=== PATIENT | male | born 1945 ===

== ENCOUNTER → 2019-11-15 | Emergency (ER) | payer OTHER ==
[~2019-11-15] VITALS: Ht 170.2 cm; Wt 74.8 kg
[~2019-11-15] MED LIST: ASPIR 8181 MG; BISOPROLOL FUMAR5 MG; DIURETIC; LIPITOR20 MG; OMEPRAZOLE MAGN20 MG; VERELAN240 MG; ZETIA10 MG
== END | disposition home or self-care (01) ==
LOC: ER 09:59
DX: B34.9 Viral infection, unspecified (principal); R07.0 Pain in throat

== ENCOUNTER 2019-11-26 22:10 | Emergency (ER) | payer OTHER ==
[~2019-11-26] VITALS: Ht 167.6 cm; Wt 74.8 kg
[2019-11-26] MEDS ORDERED: TORSEMIDE5 MG (22:35)
[2019-11-27] MEDS ORDERED: MOBIC15 MG PO (01:29)
== END 2019-11-27 01:47 | disposition home or self-care (01) ==
LOC: ER 22:10
DX: M54.2 Cervicalgia (principal)